=== PATIENT | female | born 1975 | race Caucasian/White ===

== ENCOUNTER 2017-02-04 19:49 | Emergency (ER) | payer MEDICAID ==
[~2017-02-04] VITALS: Ht 180.3 cm; Wt 73.0 kg
[2017-02-04 19:59] VITALS: BP 130/94
[2017-02-04] MEDS ORDERED: ACETAMINOPHEN 325 MG TABLET PO ONE (20:30)
[2017-02-04] MEDS ORDERED: ACETAMINOPHEN 325 MG TABLET ONE (20:33)
[2017-02-04] MEDS ORDERED: PROPARACAINE OPHTH 0.5%, 15ML ONE (21:56)
[2017-02-04] MEDS ORDERED: PROPARACAINE OPHTH 0.5%, 15ML EACHEYE ONE (22:30)
== END 2017-02-04 22:24 | disposition home or self-care (01) ==
LOC: ED 22:00
DX: M25.551 Pain in right hip (principal); R51 Headache; W06.XXXA Fall from bed, initial encounter; Y93.89 Activity, other specified; Y99.8 Other external cause status; Y92.89 Other specified places as the place of occurrence of the external cause
CPT/HCPCS: 70450; 99284

== ENCOUNTER 2017-06-23 23:27 | Emergency (ER) | payer MEDICAID ==
[~2017-06-23] VITALS: Ht 177.8 cm; Wt 75.6 kg
[2017-06-24] MEDS ORDERED: ONDANSETRON ODT 4 MG ONE (00:21)
[2017-06-24] MEDS ORDERED: HYDROmorphone 1 MG/ML, 1ML ONE (00:21)
[2017-06-24] MEDS ORDERED: ONDANSETRON ODT 4 MG PO ONE (00:30)
[2017-06-24] MEDS ORDERED: HYDROmorphone 1 MG/ML, 1ML IM ONE (00:30)
[2017-06-24 00:42] LABS: HEMATOCRIT 41.5 % (34.6-47.8); WHITE BLOOD COUNT 6.3 x10^3/uL (3.4-10)
[2017-06-24 00:49] LABS: ASPARTATE AMINO TRANSFERASE 17 U/L (15-37); BLOOD UREA NITROGEN 8 mg/dL (7-18)
[2017-06-24 01:41] VITALS: BP 120/76
== END 2017-06-24 02:32 | disposition home or self-care (01) ==
LOC: ED 23:59
DX: N83.02 Follicular cyst of left ovary (principal)
CPT/HCPCS: 36415; 76830; 80053; 84703; 85025; 96372; 99285; J1170; Q0162

== ENCOUNTER 2020-05-18 07:51 | Inpatient (IN) | payer MEDICAID ==
[~2020-05-18] VITALS: Ht 177.8 cm; Wt 89.6 kg
[~2020-05-18 07:51] MED LIST: DIAZ10TA4 PO; OXYC-307 PO
--- NOTE | 2020-05-18 07:59 | NUR ---
PT BROUGTH IN BY [facility]ON TRANSFER FROM [facility] FOR ENT CONSULT. PT REPORTS HAVING SORE THROAT FOR 1 MONTH WITH BILAT EAR PAIN. GIVEN ABX BUT PRESCRIPTION NOT FINISHED PER PT "MADE ME FEEL FUNNY". PT GIVEN 1 LT LR, CLINDAMYCI, DEXAMETHASONE, & MORPHINE FUR BUYER. PT ABLE TO SPEAK FULL SENTANCES, VSS, CALL LIGHT IN REACH.
[2020-05-18] MEDS ORDERED: MORPHINE SULFATE 4 MG/ML, 1ML IVPush PRN (08:30)
[2020-05-18] MEDS ORDERED: SODIUM CHLORIDE 0.9% 1,000 ML IV ONE (08:30)
--- NOTE | 2020-05-18 08:37 | NUR ---
ERMD Law at bedside for evaluation
[2020-05-18] MEDS ORDERED: MORPHINE SULFATE 4 MG/ML, 1ML ONE (08:39)
[2020-05-18] MEDS ORDERED: DEXAMETHASONE 4 MG/ML, 1ML IVPush ONE (09:00)
[2020-05-18] MEDS ORDERED: DEXAMETHASONE 4 MG/ML, 5ML ONE (09:03)
[2020-05-18] MEDS ORDERED: DIAZEPAM 5 MG TABLET ONE (10:18)
[2020-05-18] MEDS ORDERED: SENNA/DOCUSATE TABLET ONE (10:18)
[2020-05-18] MEDS: SENNA/DOCUSATE TABLET PO SCH (10:22)
--- NOTE | 2020-05-18 10:26 | NUR ---
DETAIL SUPERVISOR AT BEDSIDE DRAWING BLOOD CULTURES. BLOOD CULTURES DRAWN AND ABX HUNG. SIDE RAILS UP X2, CALL LIGHT WITHIN REACH, SIGNIGICANT OTHER AT BEDSIDE, NO FURTHER NEEDS AT THIS TIME.
[2020-05-18] MEDS ORDERED: ACETAMINOPHEN 325 MG TABLET PO PRN (10:30)
[2020-05-18] MEDS ORDERED: PROMETHAZINE 25 MG/ML, 1ML IM PRN (10:30)
[2020-05-18] MEDS ORDERED: GUAIFENESIN/DM 200-20MG, 10ML UDC PO PRN (10:30)
[2020-05-18] MEDS ORDERED: MELATONIN 5 MG TABLET PO PRN (10:30)
[2020-05-18] MEDS ORDERED: AMPICILLIN/SULBACTAM 3 GM in SODIUM CHLORIDE 0.9% 100 ML IV SCH (10:30)
[2020-05-18] MEDS ORDERED: hydrALAzine 20 MG/ML, 1ML IVPush PRN (10:30)
[2020-05-18 10:36] LABS: MEAN CORPUSCULAR HEMOGLOBIN 31.2 pg (27.0-34.8); MEAN CORPUSCULAR HGB CONC 32.5 g/dL (32.4-35.8); MEAN CORPUSCULAR VOLUME 95.9 fL (80-100); MEAN PLATELET VOLUME 7.9 fL (7.4-10.4); PLATELET COUNT 341 x10^3/uL (130-400); RED BLOOD COUNT 4.53 x10^6/uL (3.82-5.3); RED CELL DISTRIBUTION WIDTH 14.8 % (9.6-15.2)
[2020-05-18 10:37] LABS: ANION GAP 12 mmol/L (5-15); CALCIUM 9.2 mg/dL (8.5-10.1); CHLORIDE 112 mmol/L (98-107)
[2020-05-18 10:39] LABS: CREATININE 0.99 mg/dL (0.55-1.02)
--- NOTE | 2020-05-18 10:48 | NUR ---
PATIENT TO X-RAY.
[2020-05-18] MEDS ORDERED: DIAZEPAM 5 MG TABLET PO ONE (11:00)
[2020-05-18 11:09] LABS: MD YES
[2020-05-18 11:10] LABS: <PLATELET ESTIMATE> ADEQUATE; <PLT MORPHOLOGY> NORMAL PLT MORPH; <RBC MORPHOLOGY> NORMAL; LYMPH#(MANUAL) 1.17 x10^3/uL (1-3.4); LYMPHS% (MANUAL) 5 % (22-44); SEG#(MANUAL) 22.23 x10^3/uL (1.8-6.8); SEGS% (MANUAL) 95 % (42-75)
--- NOTE | 2020-05-18 11:30 | NUR ---
Report called to Day BURRELL.
--- NOTE | 2020-05-18 11:49 | NUR ---
PATIENT TRANSFERRED VIA GURNEY TO FLOOR WITH WOOD FURNITURE ASSEMBLER, ALL PATIENT BELONGINGS GATHERED AND TAKEN WITH PATIENT. PATIENT TRANSFERRED IN STABLE CONDITION.
[2020-05-18] MEDS: OXYcodone/APAP 5/325MG TABLET PO PRN ×2 (13:09→20:53)
[2020-05-18 13:56] VITALS: BP 147/97
[2020-05-18] MEDS: LACTATED RINGERS 1,000 ML IV SCH (16:23)
[2020-05-18] MEDS: DIAZEPAM 10 MG TABLET PO SCH ×2 (16:42→23:09)
[2020-05-18] MEDS: morphine SULFATE 10 MG/ML, 1ML IVPush PRN (17:07)
[2020-05-18] MEDS: AMPICILLIN/SULBACTAM 3 GM in SODIUM CHLORIDE 0.9% 100 ML IV SCH (18:13)
[2020-05-18 18:51] VITALS: BP 123/85
[2020-05-18] MEDS: ONDANSETRON 2MG/ML, 2ML IVPush PRN (22:34)
[2020-05-19 00:20] VITALS: BP 110/68
[2020-05-19] MEDS: AMPICILLIN/SULBACTAM 3 GM in SODIUM CHLORIDE 0.9% 100 ML IV SCH ×3 (02:18→18:14)
[2020-05-19] MEDS: LACTATED RINGERS 1,000 ML IV SCH ×2 (02:20→15:53)
[2020-05-19 03:42] LABS: MEAN CORPUSCULAR HEMOGLOBIN 31.1 pg (27.0-34.8); MEAN CORPUSCULAR HGB CONC 31.9 g/dL (32.4-35.8); MEAN CORPUSCULAR VOLUME 97.4 fL (80-100); MEAN PLATELET VOLUME 7.6 fL (7.4-10.4); PLATELET COUNT 343 x10^3/uL (130-400); RED BLOOD COUNT 4.13 x10^6/uL (3.82-5.3); RED CELL DISTRIBUTION WIDTH 14.8 % (9.6-15.2)
[2020-05-19 03:50] LABS: ANION GAP 5 mmol/L (5-15); CALCIUM 9.2 mg/dL (8.5-10.1); CHLORIDE 113 mmol/L (98-107); CREATININE 0.81 mg/dL (0.55-1.02)
[2020-05-19 05:10] LABS: BASOPHILS % (AUTO) 0 % (0-1); EOSINOPHILS % (AUTO) 0 % (1-7); LYMPHOCYTES # (AUTO) 1.09 x10^3/uL (1-3.4); LYMPHOCYTES % (AUTO) 7 % (22-44); MD SCAN; MONOCYTES # (AUTO) 0.81 x10^3/uL (0.2-0.8); MONOCYTES % (AUTO) 5 % (2-9); NEUTROPHILS # (AUTO) 14.97 x10^3/uL (1.8-6.8); NEUTROPHILS % (AUTO) 89 % (42-75)
[2020-05-19] MEDS: DIAZEPAM 10 MG TABLET PO SCH ×4 (05:48→23:45)
[2020-05-19 06:47] VITALS: BP 100/64
[2020-05-19] MEDS: SENNA/DOCUSATE TABLET PO SCH ×2 (09:42→12:16)
[2020-05-19] MEDS: morphine SULFATE 10 MG/ML, 1ML IVPush PRN ×3 (10:39→21:44)
[2020-05-19] MEDS: ONDANSETRON 2MG/ML, 2ML IVPush PRN (10:49)
[2020-05-19] MEDS: METOCLOPRAMIDE 5 MG/ML, 2ML IVPush PRN ×2 (12:16→21:57)
[2020-05-19] MEDS: DOCUSATE 100 MG CAPSULE PO PRN (12:16)
[2020-05-19 14:27] VITALS: BP 128/83
[2020-05-19] MEDS: OXYcodone/APAP 5/325MG TABLET PO PRN ×2 (15:52→23:03)
[2020-05-19] MEDS ORDERED: DEXAMETHASONE 4 MG/ML, 5ML IVPush ONE (16:00)
[2020-05-19 18:51] VITALS: BP 131/84
[2020-05-20 00:50] VITALS: BP 116/73
[2020-05-20] MEDS: morphine SULFATE 10 MG/ML, 1ML IVPush PRN ×3 (01:29→15:40)
[2020-05-20] MEDS: AMPICILLIN/SULBACTAM 3 GM in SODIUM CHLORIDE 0.9% 100 ML IV SCH (02:47)
[2020-05-20 05:36] LABS: BASOPHILS % (AUTO) 0 % (0-1); EOSINOPHILS % (AUTO) 0 % (1-7); LYMPHOCYTES # (AUTO) 0.87 x10^3/uL (1-3.4); LYMPHOCYTES % (AUTO) 7 % (22-44); MD NO; MEAN CORPUSCULAR HEMOGLOBIN 31.1 pg (27.0-34.8); MEAN CORPUSCULAR VOLUME 97.4 fL (80-100); MEAN PLATELET VOLUME 7.7 fL (7.4-10.4); MONOCYTES # (AUTO) 0.13 x10^3/uL (0.2-0.8); MONOCYTES % (AUTO) 1 % (2-9); NEUTROPHILS % (AUTO) 92 % (42-75); PLATELET COUNT 351 x10^3/uL (130-400); RED BLOOD COUNT 4.08 x10^6/uL (3.82-5.3); RED CELL DISTRIBUTION WIDTH 14.8 % (9.6-15.2)
[2020-05-20 05:38] LABS: ALBUMIN 3.2 g/dL (3.4-5.0); ANION GAP 5 mmol/L (5-15); CHLORIDE 113 mmol/L (98-107)
[2020-05-20 05:44] LABS: ALANINE AMINOTRANSFERASE 43 U/L (12-78); ALKALINE PHOSPHATASE 62 U/L (45-117); BILIRUBIN,TOTAL 0.2 mg/dL (0.2-1.0); CALCIUM 8.7 mg/dL (8.5-10.1); CREATININE 0.69 mg/dL (0.55-1.02); TOTAL PROTEIN 6.7 g/dL (6.4-8.2)
[2020-05-20] MEDS: DIAZEPAM 10 MG TABLET PO SCH ×7 (06:12→21:33)
[2020-05-20 07:32] VITALS: BP 114/74
[2020-05-20] MEDS ORDERED: FLUCONAZOLE 100 MG TABLET PO ONE (08:30)
[2020-05-20] MEDS: AMOXICILLIN/CLAV 875-125MG TABLET PO SCH ×2 (08:35→19:51)
[2020-05-20] MEDS: DOCUSATE 100 MG CAPSULE PO PRN (08:39)
[2020-05-20] MEDS: LACTOBACILLUS CHEW TABLET PO SCH ×4 (08:39→19:51)
[2020-05-20] MEDS: OXYcodone/APAP 5/325MG TABLET PO PRN ×2 (11:24→19:51)
[2020-05-20 14:04] VITALS: BP 131/78
[2020-05-20] MEDS: LACTATED RINGERS 1,000 ML IV SCH (15:40)
[2020-05-20] MEDS: SENNA/DOCUSATE TABLET PO SCH (15:57)
[2020-05-20] MEDS: ONDANSETRON 2MG/ML, 2ML IVPush PRN (18:44)
[2020-05-20 18:47] VITALS: BP 129/65
[2020-05-20] MEDS ORDERED: MICONAZOLE 7 VAG. CRM 2%, 45GM VG SCH (21:00)
[2020-05-21 00:45] VITALS: BP 116/68
[2020-05-21] MEDS: OXYcodone/APAP 5/325MG TABLET PO PRN ×2 (04:47→09:15)
[2020-05-21] MEDS: DIAZEPAM 10 MG TABLET PO SCH ×2 (05:18→11:21)
[2020-05-21] MEDS: LACTOBACILLUS CHEW TABLET PO SCH ×2 (05:19→11:21)
[2020-05-21] MEDS: morphine SULFATE 10 MG/ML, 1ML IVPush PRN (05:51)
[2020-05-21 06:00] LABS: BASOPHILS # (AUTO) 0.05 x10^3/uL (0-0.1); BASOPHILS % (AUTO) 1 % (0-1); EOSINOPHILS # (AUTO) 0.08 x10^3/uL (0-0.4); EOSINOPHILS % (AUTO) 1 % (1-7); LYMPHOCYTES # (AUTO) 2.94 x10^3/uL (1-3.4); LYMPHOCYTES % (AUTO) 28 % (22-44); MD NO; MEAN CORPUSCULAR HEMOGLOBIN 31.7 pg (27.0-34.8); MEAN CORPUSCULAR HGB CONC 32.8 g/dL (32.4-35.8); MEAN CORPUSCULAR VOLUME 96.6 fL (80-100); MEAN PLATELET VOLUME 8.1 fL (7.4-10.4); MONOCYTES # (AUTO) 0.69 x10^3/uL (0.2-0.8); MONOCYTES % (AUTO) 7 % (2-9); NEUTROPHILS # (AUTO) 6.85 x10^3/uL (1.8-6.8); NEUTROPHILS % (AUTO) 65 % (42-75); PLATELET COUNT 372 x10^3/uL (130-400); RED BLOOD COUNT 4.39 x10^6/uL (3.82-5.3); RED CELL DISTRIBUTION WIDTH 14.4 % (9.6-15.2)
[2020-05-21 07:03] VITALS: BP 113/74
[2020-05-21] MEDS: AMOXICILLIN/CLAV 875-125MG TABLET PO SCH (08:57)
[2020-05-21] MEDS ORDERED: SENNA/DOCUSATE TABLET PO SCH (09:00)
[2020-05-21] MEDS ORDERED: AMOX1TAB12 PO (09:12)
[2020-05-21] MEDS ORDERED: ACID1TAB7 PO (09:12)
[2020-05-21 12:50] VITALS: BP 123/78
== END 2020-05-21 13:45 | disposition home or self-care (01) | DRG 720 ==
LOC: ED 08:45 → EDIP 08:58 → 3N 11:56 → DCLOUNGE 05-21 13:39
PROVIDERS: ADMIT Hospitalist; ATTEND Hospitalist
DX: A41.9 Sepsis, unspecified organism (principal); F13.20 Sedative, hypnotic or anxiolytic dependence, uncomplicated; F11.20 Opioid dependence, uncomplicated; F43.10 Post-traumatic stress disorder, unspecified; H93.19 Tinnitus, unspecified ear; J02.0 Streptococcal pharyngitis; R65.21 Severe sepsis with septic shock; H81.09 Meniere's disease, unspecified ear; Z88.5 Allergy status to narcotic agent; Z88.8 Allergy status to other drugs, medicaments and biological substances
CPT/HCPCS: 36415; 70360; 71046; 80048; 80053; 83036; 83605; 85025; 87040; G0378; J0295; J1100; J2405; J2270; J2765; J7030; J7120

== ENCOUNTER 2020-05-27 17:27 | Emergency (ER) | payer MEDICAID ==
[~2020-05-27] VITALS: Ht 177.8 cm; Wt 80.0 kg
[~2020-05-27 17:27] MED LIST changes: +ACID1TAB7 PO; +AMOX1TAB12 PO
--- NOTE | 2020-05-27 18:17 | NUR ---
PT CAME IN CO OF NVD AND "VERTIGO". PT STATES SHE HAS BEEN THROWING UP AND SHAKING. PT WAS DX WITH STREP 5 WEEKS AGO AND SAYS SHE NEVER FELT SHE GOT BETTER. LABS HAVE BEEN SENT. PT RESTING IN [facility].
[2020-05-27 18:27] LABS: HCG UR SG 1.044 (1.003-1.030); MICROSCOPIC NOT IND
[2020-05-27 18:32] LABS: MEAN CORPUSCULAR HEMOGLOBIN 31.2 pg (27.0-34.8); MEAN CORPUSCULAR HGB CONC 32.2 g/dL (32.4-35.8); MEAN CORPUSCULAR VOLUME 97.2 fL (80-100); MEAN PLATELET VOLUME 7.2 fL (7.4-10.4); PLATELET COUNT 398 x10^3/uL (130-400); RED BLOOD COUNT 4.46 x10^6/uL (3.82-5.3); RED CELL DISTRIBUTION WIDTH 14.8 % (9.6-15.2)
[2020-05-27 18:35] LABS: AMPHETAMINE SCREEN, URINE Negative (Negative); BARBITURATE SCREEN, URINE Negative (Negative); BENZODIAZEPINE SCREEN, URINE Positive (Negative); CANNABINOID SCREEN, URINE Positive (Negative); COCAINE SCREEN, URINE Negative (Negative); METHADONE SCREEN, URINE Negative (Negative); OPIATE SCREEN, URINE Positive (Negative)
[2020-05-27 18:43] LABS: ALBUMIN 3.8 g/dL (3.4-5.0); ANION GAP 7 mmol/L (5-15); CALCIUM 8.8 mg/dL (8.5-10.1); CHLORIDE 105 mmol/L (98-107)
[2020-05-27] MEDS ORDERED: ONDANSETRON 2MG/ML, 2ML ONE ×2 (18:46→19:49)
[2020-05-27 18:49] LABS: ALANINE AMINOTRANSFERASE 46 U/L (12-78); ALKALINE PHOSPHATASE 67 U/L (45-117); BILIRUBIN,TOTAL 0.2 mg/dL (0.2-1.0); CREATININE 0.77 mg/dL (0.55-1.02); TOTAL PROTEIN 7.8 g/dL (6.4-8.2); TROPONIN I < 0.015 ng/mL (0.000-0.045)
[2020-05-27] MEDS ORDERED: ONDANSETRON 2MG/ML, 2ML IVPush ONE ×2 (19:00→20:00)
[2020-05-27] MEDS ORDERED: SODIUM CHLORIDE 0.9% 1,000ML IVBOLUS ONE (19:00)
--- NOTE | 2020-05-27 19:01 | NUR ---
RN TOOK OVER PT CARE, RN TIED PT GOWN UP IN BACK AT PT REQUEST
[2020-05-27 19:26] LABS: BASOPHILS # (AUTO) 0.02 x10^3/uL (0-0.1); BASOPHILS % (AUTO) 0 % (0-1); EOSINOPHILS # (AUTO) 0.05 x10^3/uL (0-0.4); EOSINOPHILS % (AUTO) 0 % (1-7); LYMPHOCYTES # (AUTO) 1.89 x10^3/uL (1-3.4); LYMPHOCYTES % (AUTO) 11 % (22-44); MD SCAN; MONOCYTES # (AUTO) 0.24 x10^3/uL (0.2-0.8); MONOCYTES % (AUTO) 1 % (2-9); NEUTROPHILS # (AUTO) 15.54 x10^3/uL (1.8-6.8); NEUTROPHILS % (AUTO) 88 % (42-75)
--- NOTE | 2020-05-27 19:30 | NUR ---
CT CALLED AND STATED "PT DENIED CT AND WAS REQUSTING PAIN MEDS BEFORE HER CT, BECAUSE SHE IS ANXIOUS FROM HER FATHER PASSING AWAY FROM A CT SCAN" RN NOTIFIED PROVIDER
[2020-05-27] MEDS ORDERED: MORPHINE SULFATE 4 MG/ML, 1ML ONE ×2 (19:49→21:24)
[2020-05-27] MEDS: MORPHINE SULFATE 4 MG/ML, 1ML IVPush PRN ×2 (19:52→21:27)
--- NOTE | 2020-05-27 20:00 | NUR ---
RN NOTIFIED PROVIDER THAT PT HAS A C/O THROAT PAIN WELL HER HEADACHE AND ABD PAIN.
--- NOTE | 2020-05-27 20:18 | NUR ---
Pts called asking why we were not treating his with IV valium and percocets. Pts informed that this RN is not able to perscribe anything and that the physcian would treat her to his best medically sound ability in a safe way. Pts demanded a rx for percocets and valium for home as thats the only thing that works for her dizzyness. Pts informed that it is not safe to mix multiple narcotics. Pts intial complaint was sore throat and now has changed to vertigo and headache. Md at this time feels he has generously treated her symptoms and is performing necessry exams. Pts verbalzied to RN "if you do not give her the rtight medications you will be hearing from multiple people and legal action will be taken. 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 RN ended conversation per risk management eduction and refereed pt to please seek leadership and given Directors number.
--- NOTE | 2020-05-27 20:28 | NUR ---
PT AMBULATED TO RESTROOM WITHOUT DIFFICULTY. RN NOTIFIED PT THAT WE NEED A FECAL SAMPLE. PT STATED "SHE DOES NOT NEED TO GO #2 AND THAT SHE WILL LET US KNOW WHEN SHE DOES"
--- NOTE | 2020-05-27 20:35 | NUR ---
PT MEDICATED PER EMAR
[2020-05-27] MEDS ORDERED: OMNIPAQUE 350 MG/ML, 100ML BOTTLE ONE (20:52)
[2020-05-27] MEDS ORDERED: DIAZEPAM 5 MG TABLET ONE (21:00)
[2020-05-27] MEDS ORDERED: DIAZEPAM 5 MG TABLET PO ONE (21:00)
--- NOTE | 2020-05-27 21:04 | NUR ---
PT RESTING IN BED, PT ON MONITOR, PT DENIED CURRENT WANTS OR NEEDS. RN WILL CONTINUE TO MONITOR. PT SIGNED RECORDS REQUEST FOR [facility]
[2020-05-27 22:04] VITALS: BP 120/74
== END 2020-05-27 22:07 | disposition home or self-care (01) ==
LOC: ED 17:57
DX: R10.84 Generalized abdominal pain (principal); R19.7 Diarrhea, unspecified; J02.9 Acute pharyngitis, unspecified; H81.03 Meniere's disease, bilateral; R11.2 Nausea with vomiting, unspecified
CPT/HCPCS: 36415; 71045; 74177; 80053; 80307; 81003; 81025; 83690; 84484; 85025; 96374; 96375; 96376; 99285; J2270; J2405; J7030; Q9967